=== PATIENT | male | born 1955 | race Caucasian/White ===

== ENCOUNTER 2021-09-08 17:03 | Inpatient (IN) ==
[2021-09-08] MEDS ORDERED: ONDANSETRON 4 MG/2 ML VIAL IV STA (18:26)
[2021-09-08] MEDS ORDERED: KETOROLAC 30 MG/1 ML VIAL IV STA (18:26)
[2021-09-08] MEDS ORDERED: SODIUM CHLORIDE 0.9% 500 ML IV STA (18:26)
[2021-09-08] MEDS ORDERED: HYDROmorphone 2 MG/1 ML VIAL IV STA (18:26)
[2021-09-08] MEDS ORDERED: LABETALOL 20 MG/4 ML SYRINGE IV STA (18:28)
[2021-09-08 18:35] LABS: Basophils # 0.1 10*3/uL (0.0-0.2); Basophils % 0.3 % (0.0-0.8); Eosinophils % 0.1 % (0.00-10.9); Hemoglobin 15.8 GM/DL (14.0-18.0); Immature Granulocytes % 0.7 %; Immature Granulocytes Absolute 0.15 #; Lymphocytes # 1.8 10*3/uL (1.4-4.0); Lymphocytes % 8.5 % (21.2-54.2); Mean Corpuscular HGB Conc 32.9 GM/DL (32-36); Mean Corpuscular Volume 96.2 FL (87-102); Mean Platelet Volume 10.7 FL (9.6-12.0); Monocytes % 9.6 % (1.7-12.7); Neutrophils % 80.8 % (38.7-73.9); Platelet Count 204 T/CUMM (130-400); Red Blood Count 4.99 MC/CUMM (3.8-5.5); Red Cell Distribution Width 13.8 % (9.3-17.3); White Blood Count 21.4 T/CUMM (4-12)
[2021-09-08 19:06] LABS: Alanine Aminotransferase 31 U/L (16-61); Albumin 3.7 G/DL (3.4-5.0); Alkaline Phosphatase 97 U/L (45-117); Amylase 58 U/L (25-115); Aspartate Amino Transferase 27 U/L (0-37); Blood Urea Nitrogen 28 MG/DL (7-18); Calcium 9.3 MG/DL (8.5-10.1); Carbon Dioxide 25 MMOL/L (21-32); Estimated Glom Filtration Rate 32 ML/MIN; Glucose 141 MG/DL (74-106); Osmolality,Calculated 286.4 MOS/KG (273-304); Potassium 4.4 MMOL/L (3.5-5.1); Sodium 140 MMOL/L (136-145); Total Protein 7.4 G/DL (6.4-8.2)
[2021-09-08 19:28] LABS: Eosinophils 1 % (0-10); Lymphocytes 11 % (20-55); Segmented Neutrophils 78 % (50-85); Total Cells Counted 100
[2021-09-08 19:29] LABS: Atypical Lymphocytes Few; Microcytosis Slight; Platelet Estimate Normal
[2021-09-08] MEDS ORDERED: cefTRIAXone 1,000 MG in SODIUM CHLORIDE 0.9% 100 ML IV STA (19:57)
[2021-09-08 20:13] LABS: Mucus,Urine Many /LPF (Occasional); RBC,Urine 958 /HPF (0-4)
[2021-09-08 20:26] LABS: Bilirubin,Urine Large mg/dL (Negative); Glucose,Urine (UA) 100 mg/dL (Negative); Ketones,Urine 15 mg/dL (Negative); Nitrite,Urine Positive (Negative); Protein,Urine >=300 MG/DL; Urine Appearance Turbid (Clear); Urine Color Brown (Yellow); Urine Specific Gravity 1.015 (1.001-1.035); Urine pH 5.5 (4.5-8.0)
[2021-09-08 20:27] LABS: Blood, Urine Large mg/dL (Negative)
[2021-09-08] MEDS ORDERED: GLUCAGON 1 MG VIAL IM PRN (22:02)
[2021-09-08] MEDS ORDERED: ONDANSETRON 4 MG/2 ML VIAL IV PRN (22:02)
[2021-09-08] MEDS ORDERED: ZALEPLON 5 MG CAPSULE PO PRN (22:02)
[2021-09-08] MEDS ORDERED: SIMETHICONE CHEW 125 MG TABLET PO PRN (22:02)
[2021-09-08] MEDS ORDERED: NICOTINE 21 MG/24 HR PATCH TRANSDERM PRN (22:02)
[2021-09-08] MEDS ORDERED: DEXTROSE 10% 250 ML BAG IV PRN (22:27)
[2021-09-08] MEDS: SODIUM CHLORIDE 0.45% 1,000 ML IV SCH (23:28)
[2021-09-08] MEDS: DOCUSATE SODIUM 100 MG CAPSULE PO SCH (23:28)
[2021-09-08] MEDS: POLYETHYLENE GLYCOL POWDER 17 GM PACK PO SCH (23:28)
[2021-09-09 07:15] LABS: Basophils % 0.3 % (0.0-0.8); Eosinophils # 0.4 10*3/uL (0.0-0.87); Eosinophils % 2.2 % (0.00-10.9); Hematocrit 41.7 VOL% (42.0-52.0); Hemoglobin 13.5 GM/DL (14.0-18.0); Immature Granulocytes % 0.6 %; Immature Granulocytes Absolute 0.09 #; Lymphocytes # 2.2 10*3/uL (1.4-4.0); Lymphocytes % 14.1 % (21.2-54.2); Mean Corpuscular HGB Conc 32.4 GM/DL (32-36); Mean Corpuscular Volume 98.1 FL (87-102); Mean Platelet Volume 10.6 FL (9.6-12.0); Neutrophils % 72.8 % (38.7-73.9); Platelet Count 167 T/CUMM (130-400); Red Blood Count 4.25 MC/CUMM (3.8-5.5); Red Cell Distribution Width 13.9 % (9.3-17.3); White Blood Count 15.9 T/CUMM (4-12)
[2021-09-09 07:22] LABS: PT Patient Result 11.4 SECS (10.5-12.0)
[2021-09-09 07:32] LABS: Carcinoembryonic Antigen 0.9 NG/ML (0.0-5.0)
[2021-09-09 07:36] LABS: Calcium 8.6 MG/DL (8.5-10.1); Osmolality,Calculated 282.8 MOS/KG (273-304); Potassium 4.4 MMOL/L (3.5-5.1); Risk Ratio 3.17; Thyroid Stimulating Hormone 0.784 uIU/ml (0.358-3.74); VLDL Cholesterol 19.8 MG/DL
[2021-09-09] MEDS ORDERED: NICOTINE 14 MG/24 HR PATCH TRANSDERM PRN (07:45)
[2021-09-09] MEDS: DOCUSATE SODIUM 100 MG CAPSULE PO SCH ×2 (09:05→21:21)
[2021-09-09] MEDS: PANTOPRAZOLE 40 MG TABLET PO SCH (09:05)
[2021-09-09] MEDS: POLYETHYLENE GLYCOL POWDER 17 GM PACK PO SCH ×2 (09:05→21:21)
[2021-09-09] MEDS: SODIUM CHLORIDE 0.45% 1,000 ML IV SCH ×2 (17:04→17:53)
[2021-09-09] MEDS: hydrALAZINE 20 MG/1 ML VIAL IV PRN (18:42)
[2021-09-09] MEDS: cefTRIAXone 1,000 MG in SODIUM CHLORIDE 0.9% 100 ML IV SCH (21:14)
[2021-09-10] MEDS: SODIUM CHLORIDE 0.45% 1,000 ML IV SCH ×3 (02:47→15:53)
[2021-09-10 07:08] LABS: Basophils # 0.1 10*3/uL (0.0-0.2); Basophils % 0.6 % (0.0-0.8); Eosinophils # 0.7 10*3/uL (0.0-0.87); Eosinophils % 5.2 % (0.00-10.9); Hematocrit 40.5 VOL% (42.0-52.0); Hemoglobin 13.2 GM/DL (14.0-18.0); Immature Granulocytes % 0.6 %; Immature Granulocytes Absolute 0.07 #; Lymphocytes # 2.3 10*3/uL (1.4-4.0); Lymphocytes % 17.9 % (21.2-54.2); Mean Corpuscular HGB Conc 32.6 GM/DL (32-36); Mean Corpuscular Volume 98.1 FL (87-102); Mean Platelet Volume 11.2 FL (9.6-12.0); Monocytes % 10.5 % (1.7-12.7); Neutrophils % 65.2 % (38.7-73.9); Platelet Count 178 T/CUMM (130-400); Red Blood Count 4.13 MC/CUMM (3.8-5.5); Red Cell Distribution Width 13.6 % (9.3-17.3); White Blood Count 12.6 T/CUMM (4-12)
[2021-09-10 07:44] LABS: Calcium 8.8 MG/DL (8.5-10.1); Osmolality,Calculated 283.7 MOS/KG (273-304); Potassium 4.1 MMOL/L (3.5-5.1)
[2021-09-10] MEDS: DOCUSATE SODIUM 100 MG CAPSULE PO SCH ×2 (09:19→20:35)
[2021-09-10] MEDS: PANTOPRAZOLE 40 MG TABLET PO SCH (09:19)
[2021-09-10] MEDS: POLYETHYLENE GLYCOL POWDER 17 GM PACK PO SCH ×2 (09:19→20:35)
[2021-09-10] MEDS: hydrALAZINE 20 MG/1 ML VIAL IV PRN (16:47)
[2021-09-10] MEDS: TAMSULOSIN 0.4 MG CAPSULE PO SCH (20:31)
[2021-09-10] MEDS: cefTRIAXone 1,000 MG in SODIUM CHLORIDE 0.9% 100 ML IV SCH (20:31)
[2021-09-11] MEDS: SODIUM CHLORIDE 0.45% 1,000 ML IV SCH ×4 (00:27→20:54)
[2021-09-11] MEDS: hydrALAZINE 20 MG/1 ML VIAL IV PRN ×2 (00:29→09:50)
[2021-09-11] MEDS: ACETAMINOPHEN 325 MG TABLET PO PRN ×3 (04:13→20:35)
[2021-09-11 07:19] LABS: Basophils # 0.1 10*3/uL (0.0-0.2); Basophils % 0.7 % (0.0-0.8); Eosinophils # 0.5 10*3/uL (0.0-0.87); Eosinophils % 5.3 % (0.00-10.9); Hematocrit 42.9 VOL% (42.0-52.0); Hemoglobin 14.2 GM/DL (14.0-18.0); Immature Granulocytes % 0.4 %; Immature Granulocytes Absolute 0.04 #; Lymphocytes # 2.1 10*3/uL (1.4-4.0); Lymphocytes % 21.2 % (21.2-54.2); Mean Corpuscular HGB Conc 33.1 GM/DL (32-36); Mean Platelet Volume 11.2 FL (9.6-12.0); Monocytes % 9.7 % (1.7-12.7); Neutrophils % 62.7 % (38.7-73.9); Platelet Count 191 T/CUMM (130-400); Red Blood Count 4.47 MC/CUMM (3.8-5.5); Red Cell Distribution Width 13.4 % (9.3-17.3)
[2021-09-11 07:25] LABS: Potassium 3.9 MMOL/L (3.5-5.1)
[2021-09-11] MEDS: POLYETHYLENE GLYCOL POWDER 17 GM PACK PO SCH ×2 (09:50→21:44)
[2021-09-11] MEDS: PANTOPRAZOLE 40 MG TABLET PO SCH (09:50)
[2021-09-11] MEDS: DOCUSATE SODIUM 100 MG CAPSULE PO SCH ×2 (09:52→21:44)
[2021-09-11] MEDS: amLODIPine 10 MG TABLET PO SCH (10:43)
[2021-09-11] MEDS: CHOLECALCIFEROL 1,000 UNIT TABLET PO SCH (12:00)
[2021-09-11 13:20] LABS: Hepatitis B Core IgM Quant 0.15 Index; Hepatitis B Surface Ag Quant < 0.10 Index; Hepatitis B Surface Ag Result Non-Reactive (NonReactive); Hepatitis C Virus Ab Result Non-Reactive (NonReactive)
[2021-09-11] MEDS: cefTRIAXone 1,000 MG in SODIUM CHLORIDE 0.9% 100 ML IV SCH (20:30)
[2021-09-11] MEDS: carvediloL 6.25 MG TABLET PO SCH (20:33)
[2021-09-11] MEDS: TAMSULOSIN 0.4 MG CAPSULE PO SCH (20:33)
[2021-09-12] MEDS: PANTOPRAZOLE 40 MG TABLET PO SCH (10:41)
[2021-09-12] MEDS: CHOLECALCIFEROL 1,000 UNIT TABLET PO SCH (10:41)
[2021-09-12] MEDS: carvediloL 6.25 MG TABLET PO SCH (10:42)
[2021-09-12] MEDS: DOCUSATE SODIUM 100 MG CAPSULE PO SCH (10:42)
[2021-09-12] MEDS: SODIUM CHLORIDE 0.45% 1,000 ML IV SCH ×2 (10:42→11:45)
[2021-09-12] MEDS: POLYETHYLENE GLYCOL POWDER 17 GM PACK PO SCH (10:42)
[2021-09-12] MEDS: amLODIPine 10 MG TABLET PO SCH (10:42)
[2021-09-12 14:07] VITALS: BP 145/99
== END 2021-09-12 14:01 | disposition home or self-care (01) | DRG 683 ==
LOC: N.ED 17:03 → N.EDINP 22:02 → SUATTDRO 22:02 → N.5E 09-09 02:21
PROVIDERS: ADMIT Internal Medicine; ATTEND Internal Medicine

== ENCOUNTER 2022-02-08 11:24 | Inpatient (IN) ==
[2022-02-08] MEDS ORDERED: ONDANSETRON 4 MG/2 ML VIAL IV PRN (13:46)
[2022-02-08] MEDS ORDERED: GLUCAGON 1 MG VIAL IM PRN (13:46)
[2022-02-08] MEDS ORDERED: DEXTROSE 10% 250 ML BAG IV PRN (13:55)
[2022-02-08] MEDS: SODIUM CHLORIDE 0.9% 1,000 ML IV SCH (14:17)
[2022-02-08] MEDS: ALBUTEROL/IPRATROPIUM 3 ML NEB RESP TX SCH (19:25)
[2022-02-08] MEDS: amLODIPine 10 MG TABLET PO SCH (20:13)
[2022-02-08] MEDS: carvediloL 6.25 MG TABLET PO SCH (20:14)
[2022-02-08] MEDS: ACETAMINOPHEN 325 MG TABLET PO PRN (20:14)
[2022-02-08 21:09] LABS: Calcium 8.5 MG/DL (8.5-10.1); Potassium 3.7 MMOL/L (3.5-5.1)
[2022-02-08] MEDS: PIPERACILLIN/TAZOBACTAM 3,375 MG in SODIUM CHLORIDE 0.9% 100 ML IV SCH (21:59)
[2022-02-08 23:01] LABS: Bacteria,Urine Moderate /HPF (Few); Hyaline Casts,Urine 3 /LPF (0-3); Mucus,Urine Occasional /LPF (Occasional); RBC,Urine 9 /HPF (0-4); Squamous Epithelial Cell,Urine Occasional /HPF (0-10)
[2022-02-08 23:03] LABS: Bilirubin,Urine Negative (Negative); Blood, Urine Moderate mg/dL (Negative); Glucose,Urine (UA) Negative (Negative); Ketones,Urine Negative (Negative); Nitrite,Urine Positive (Negative); Protein,Urine 100 mg/dL (Negative); Urine Appearance Clear (Clear); Urine Color Yellow (Yellow); Urine Urobilinogen 0.2 eU/dL (<2.0); Urine pH 5.5 (4.5-8.0)
[2022-02-09] MEDS ORDERED: methylPREDNISolone SOD SUC 125 MG/2 ML VIAL IV ONE (00:50)
[2022-02-09] MEDS: ALBUTEROL/IPRATROPIUM 3 ML NEB RESP TX SCH ×4 (01:04→19:05)
[2022-02-09] MEDS: SODIUM CHLORIDE 0.9% 1,000 ML IV SCH ×2 (02:21→05:43)
[2022-02-09] MEDS: PIPERACILLIN/TAZOBACTAM 3,375 MG in SODIUM CHLORIDE 0.9% 100 ML IV SCH ×3 (06:01→21:49)
[2022-02-09 06:44] LABS: Basophils % 0.3 % (0.0-0.8); Hematocrit 28.8 VOL% (42.0-52.0); Hemoglobin 9.4 GM/DL (14.0-18.0); Immature Granulocytes % 0.6 %; Immature Granulocytes Absolute 0.02 #; Lymphocytes # 0.3 10*3/uL (1.4-4.0); Lymphocytes % 7.9 % (21.2-54.2); Mean Corpuscular HGB Conc 32.6 GM/DL (32-36); Mean Platelet Volume 10.6 FL (9.6-12.0); Monocytes # 0.8 10*3/uL (0.11-0.8); Monocytes % 21.2 % (1.7-12.7); Platelet Count 227 T/CUMM (130-400); Red Blood Count 3.03 MC/CUMM (3.8-5.5); Red Cell Distribution Width 14.7 % (9.3-17.3); White Blood Count 3.5 T/CUMM (4-12)
[2022-02-09 06:44] LABS: ABG Base Excess 0.8 MMOL/L (-2.5-2.5); ABG HCO3 25.1 MMOL/L (20-26); ABG PCO2 37.6 MM HG (35-48); ABG PO2 65.8 MM HG (80-95); ABG TCO2 22.8 MMOL/L (23-27)
[2022-02-09 06:53] LABS: PT Patient Result 11.3 SECS (10.1-12.1)
[2022-02-09 07:05] LABS: Bilirubin,Direct 0.13 MG/DL (0.0-0.20); Bilirubin,Indirect 0.3 MG/DL (0.0-1.0); Bilirubin,Total 0.4 MG/DL (0.20-1.00); Calcium 8.3 MG/DL (8.5-10.1); Osmolality,Calculated 281.8 MOS/KG (273-304); Potassium 3.8 MMOL/L (3.5-5.1)
[2022-02-09 07:07] LABS: Band Neutrophils 2 % (0-10); Eosinophils 1 % (0-10); Lymphocytes 7 % (20-55); Total Cells Counted 100
[2022-02-09 07:08] LABS: Platelet Estimate Adequate
[2022-02-09] MEDS: methylPREDNISolone SOD SUC 125 MG/2 ML VIAL IV SCH ×2 (08:19→16:12)
[2022-02-09] MEDS: carvediloL 6.25 MG TABLET PO SCH ×2 (08:20→20:30)
[2022-02-09] MEDS: MULTIVITAMIN (CENTRUM) TABLET PO SCH (08:20)
[2022-02-09 12:35] LABS: % Iron Saturation 8.6 % (18-50); Ferritin 948.8 ng/mL (26-388)
[2022-02-09 12:38] LABS: Folate > 24.00 NG/ML (5.38-24.0); Vitamin B12 252 PG/ML (211-911)
[2022-02-09] MEDS: amLODIPine 10 MG TABLET PO SCH (20:30)
[2022-02-10] MEDS: methylPREDNISolone SOD SUC 125 MG/2 ML VIAL IV SCH ×2 (00:10→08:01)
[2022-02-10] MEDS: ALBUTEROL/IPRATROPIUM 3 ML NEB RESP TX SCH ×4 (01:37→20:08)
[2022-02-10 05:39] LABS: Basophils % 0.2 % (0.0-0.8); Hematocrit 28.7 VOL% (42.0-52.0); Hemoglobin 9.3 GM/DL (14.0-18.0); Immature Granulocytes % 1.7 %; Immature Granulocytes Absolute 0.07 #; Lymphocytes # 0.9 10*3/uL (1.4-4.0); Lymphocytes % 21.5 % (21.2-54.2); Mean Corpuscular HGB Conc 32.4 GM/DL (32-36); Mean Corpuscular Volume 95.7 FL (87-102); Mean Platelet Volume 10.7 FL (9.6-12.0); Monocytes % 23.5 % (1.7-12.7); Neutrophils % 53.1 % (38.7-73.9); Platelet Count 253 T/CUMM (130-400); Red Cell Distribution Width 14.5 % (9.3-17.3); White Blood Count 4.1 T/CUMM (4-12)
[2022-02-10] MEDS: SODIUM CHLORIDE 0.9% 1,000 ML IV SCH ×2 (05:50→11:51)
[2022-02-10] MEDS: PIPERACILLIN/TAZOBACTAM 3,375 MG in SODIUM CHLORIDE 0.9% 100 ML IV SCH ×3 (05:51→21:36)
[2022-02-10 06:01] LABS: Calcium 9.3 MG/DL (8.5-10.1); Osmolality,Calculated 299.1 MOS/KG (273-304); Potassium 4.3 MMOL/L (3.5-5.1)
[2022-02-10 06:12] LABS: Band Neutrophils 6 % (0-10); Lymphocytes 27 % (20-55); Total Cells Counted 100
[2022-02-10 06:13] LABS: Atypical Lymphocytes Few
[2022-02-10 06:14] LABS: Macrocytosis Slight; Polychromasia Slight
[2022-02-10] MEDS ORDERED: DIAZEPAM 5 MG TABLET PO ONE (07:36)
[2022-02-10] MEDS: MULTIVITAMIN (CENTRUM) TABLET PO SCH (08:02)
[2022-02-10] MEDS: carvediloL 6.25 MG TABLET PO SCH ×2 (08:02→20:41)
[2022-02-10] MEDS ORDERED: VANCOMYCIN INJ 1,000 MG in SODIUM CHLORIDE 0.9% 250 ML IV ONE (09:55)
[2022-02-10] MEDS: VANCOMYCIN INJ 1,250 MG in SODIUM CHLORIDE 0.9% 250 ML IV SCH (11:49)
[2022-02-10] MEDS: FERRIC GLUCONATE COMPLEX 125 MG in SODIUM CHLORIDE 0.9% 100 ML IV SCH (13:43)
[2022-02-11] MEDS: ALBUTEROL/IPRATROPIUM 3 ML NEB RESP TX SCH ×4 (00:33→19:12)
[2022-02-11] MEDS: VANCOMYCIN INJ 1,250 MG in SODIUM CHLORIDE 0.9% 250 ML IV SCH ×2 (02:05→14:18)
[2022-02-11] MEDS: SODIUM CHLORIDE 0.9% 1,000 ML IV SCH (04:01)
[2022-02-11] MEDS: PIPERACILLIN/TAZOBACTAM 3,375 MG in SODIUM CHLORIDE 0.9% 100 ML IV SCH ×3 (05:15→21:14)
[2022-02-11 05:47] LABS: Basophils % 0.5 % (0.0-0.8); Hematocrit 28.2 VOL% (42.0-52.0); Hemoglobin 9.3 GM/DL (14.0-18.0); Immature Granulocytes % 10.8 %; Immature Granulocytes Absolute 0.67 #; Lymphocytes # 1.4 10*3/uL (1.4-4.0); Lymphocytes % 22.4 % (21.2-54.2); Mean Corpuscular Volume 94.6 FL (87-102); Mean Platelet Volume 10.4 FL (9.6-12.0); Monocytes # 1.6 10*3/uL (0.11-0.8); Monocytes % 26.3 % (1.7-12.7); Platelet Count 316 T/CUMM (130-400); Red Blood Count 2.98 MC/CUMM (3.8-5.5); Red Cell Distribution Width 14.6 % (9.3-17.3); White Blood Count 6.2 T/CUMM (4-12)
[2022-02-11 06:06] LABS: Calcium 8.3 MG/DL (8.5-10.1); Osmolality,Calculated 298.1 MOS/KG (273-304); Potassium 3.9 MMOL/L (3.5-5.1)
[2022-02-11 06:36] LABS: Anisocytosis 1+; Band Neutrophils 9 % (0-10); Lymphocytes 25 % (20-55); Myelocytes 3 %; Nucleated Red Blood Cells 1 (0-5); Platelet Estimate Normal; Total Cells Counted 100
[2022-02-11] MEDS: MULTIVITAMIN (CENTRUM) TABLET PO SCH (08:28)
[2022-02-11] MEDS: carvediloL 6.25 MG TABLET PO SCH ×2 (08:28→21:14)
[2022-02-11] MEDS: FERRIC GLUCONATE COMPLEX 125 MG in SODIUM CHLORIDE 0.9% 100 ML IV SCH (09:23)
[2022-02-11] MEDS: ACETAMINOPHEN 325 MG TABLET PO PRN (11:35)
[2022-02-11] MEDS: amLODIPine 10 MG TABLET PO SCH (21:14)
[2022-02-12] MEDS: ALBUTEROL/IPRATROPIUM 3 ML NEB RESP TX SCH ×4 (00:32→20:29)
[2022-02-12 02:25] LABS: Basophils % 0.1 % (0.0-0.8); Eosinophils % 0.3 % (0.00-10.9); Hematocrit 31.9 VOL% (42.0-52.0); Hemoglobin 10.4 GM/DL (14.0-18.0); Immature Granulocytes % 20.6 %; Immature Granulocytes Absolute 2.16 #; Mean Corpuscular HGB Conc 32.6 GM/DL (32-36); Mean Corpuscular Volume 95.2 FL (87-102); Mean Platelet Volume 9.9 FL (9.6-12.0); Monocytes # 2.1 10*3/uL (0.11-0.8); Monocytes % 19.8 % (1.7-12.7); NRBC # 0.14 10*3/uL; Neutrophils % 40.2 % (38.7-73.9); Platelet Count 359 T/CUMM (130-400); Red Blood Count 3.35 MC/CUMM (3.8-5.5); White Blood Count 10.5 T/CUMM (4-12)
[2022-02-12 02:44] LABS: Calcium 9.5 MG/DL (8.5-10.1); Osmolality,Calculated 291.3 MOS/KG (273-304); Potassium 3.8 MMOL/L (3.5-5.1)
[2022-02-12 02:52] LABS: Lymphocytes 48 % (20-55); Myelocytes 2 %; Platelet Estimate Normal; Total Cells Counted 100
[2022-02-12] MEDS: PIPERACILLIN/TAZOBACTAM 3,375 MG in SODIUM CHLORIDE 0.9% 100 ML IV SCH (06:15)
[2022-02-12] MEDS: VANCOMYCIN INJ 1,250 MG in SODIUM CHLORIDE 0.9% 250 ML IV SCH (06:34)
[2022-02-12] MEDS: MULTIVITAMIN (CENTRUM) TABLET PO SCH (08:21)
[2022-02-12] MEDS: carvediloL 6.25 MG TABLET PO SCH ×2 (08:21→20:56)
[2022-02-12] MEDS: FERRIC GLUCONATE COMPLEX 125 MG in SODIUM CHLORIDE 0.9% 100 ML IV SCH (10:16)
[2022-02-12] MEDS: AMPICILLIN INJ 1,000 MG in SODIUM CHLORIDE 0.9% 100 ML IV SCH ×3 (11:33→21:29)
[2022-02-12] MEDS ORDERED: VANCOMYCIN INJ 1,500 MG in SODIUM CHLORIDE 0.9% 500 ML IV SCH (15:00)
[2022-02-12] MEDS: amLODIPine 10 MG TABLET PO SCH (20:56)
[2022-02-13] MEDS: ALBUTEROL/IPRATROPIUM 3 ML NEB RESP TX SCH ×4 (01:03→19:30)
[2022-02-13] MEDS: AMPICILLIN INJ 1,000 MG in SODIUM CHLORIDE 0.9% 100 ML IV SCH ×4 (04:00→21:09)
[2022-02-13 05:37] LABS: Basophils % 0.1 % (0.0-0.8); Eosinophils # 0.1 10*3/uL (0.0-0.87); Eosinophils % 0.9 % (0.00-10.9); Hemoglobin 10.1 GM/DL (14.0-18.0); Immature Granulocytes % 16.2 %; Immature Granulocytes Absolute 2.39 #; Lymphocytes # 2.3 10*3/uL (1.4-4.0); Lymphocytes % 15.5 % (21.2-54.2); Mean Corpuscular HGB Conc 32.6 GM/DL (32-36); Mean Platelet Volume 9.9 FL (9.6-12.0); Monocytes # 2.2 10*3/uL (0.11-0.8); Monocytes % 14.9 % (1.7-12.7); NRBC # 0.09 10*3/uL; Neutrophils % 52.4 % (38.7-73.9); Platelet Count 363 T/CUMM (130-400); Red Blood Count 3.23 MC/CUMM (3.8-5.5); Red Cell Distribution Width 15.2 % (9.3-17.3); White Blood Count 14.8 T/CUMM (4-12)
[2022-02-13 05:57] LABS: Calcium 9.2 MG/DL (8.5-10.1); Osmolality,Calculated 295.3 MOS/KG (273-304); Potassium 3.5 MMOL/L (3.5-5.1)
[2022-02-13 05:58] LABS: Band Neutrophils 4 % (0-10); Lymphocytes 12 % (20-55); Metamyelocytes 1 %; Myelocytes 4 %; Promyelocytes 2 %; Total Cells Counted 100
[2022-02-13 05:59] LABS: Hypochromia 1+
[2022-02-13 06:00] LABS: Macrocytosis Slight
[2022-02-13] MEDS: MULTIVITAMIN (CENTRUM) TABLET PO SCH (08:56)
[2022-02-13] MEDS: FERRIC GLUCONATE COMPLEX 125 MG in SODIUM CHLORIDE 0.9% 100 ML IV SCH (08:56)
[2022-02-13] MEDS: carvediloL 6.25 MG TABLET PO SCH ×2 (08:56→21:09)
[2022-02-13] MEDS: SODIUM CHLORIDE 0.45% 1,000 ML IV SCH (17:08)
[2022-02-13] MEDS ORDERED: LOPERAMIDE 2 MG CAPSULE PO ONE (18:22)
[2022-02-13] MEDS ORDERED: LOPERAMIDE 2 MG CAPSULE PO PRN (18:23)
[2022-02-13] MEDS: amLODIPine 10 MG TABLET PO SCH (21:08)
[2022-02-14] MEDS: ALBUTEROL/IPRATROPIUM 3 ML NEB RESP TX SCH ×2 (01:34→07:15)
[2022-02-14] MEDS: AMPICILLIN INJ 1,000 MG in SODIUM CHLORIDE 0.9% 100 ML IV SCH ×2 (04:15→09:22)
[2022-02-14] MEDS: SODIUM CHLORIDE 0.45% 1,000 ML IV SCH (06:29)
[2022-02-14 08:02] VITALS: BP 114/69
[2022-02-14] MEDS: carvediloL 6.25 MG TABLET PO SCH (08:12)
[2022-02-14] MEDS: MULTIVITAMIN (CENTRUM) TABLET PO SCH (08:12)
[2022-02-14] MEDS: FERRIC GLUCONATE COMPLEX 125 MG in SODIUM CHLORIDE 0.9% 100 ML IV SCH (09:22)
[2022-02-14] MEDS ORDERED: AMOXICILLIN 500 MG CAPSULE PO SCH (14:00)
== END 2022-02-14 09:59 | disposition home or self-care (01) | DRG 180 ==
LOC: N.TELES → SUATTDRO 11:49
PROVIDERS: ADMIT Internal Medicine; ATTEND Internal Medicine Geriatric Medicine
PROC: [UNRECOGNIZED PROCEDURE] (2022-02-10 08:35)

== ENCOUNTER 2022-03-13 12:32 | Inpatient (IN) ==
[2022-03-13] MEDS ORDERED: SODIUM CHLORIDE 0.9% 1,000 ML IV STA (14:03)
[2022-03-13 14:20] LABS: Basophils % 0.1 % (0.0-0.8); Lymphocytes # 1.8 10*3/uL (1.4-4.0); Lymphocytes % 13.6 % (21.2-54.2); Mean Corpuscular Volume 102.9 FL (87-102); Mean Platelet Volume 9.6 FL (9.6-12.0); Monocytes # 1.3 10*3/uL (0.11-0.8); Monocytes % 9.6 % (1.7-12.7); NRBC # 0.21 10*3/uL; Neutrophils % 73.7 % (38.7-73.9); Platelet Count 188 T/CUMM (130-400); Red Blood Count 1.75 MC/CUMM (3.8-5.5); Red Cell Distribution Width 17.7 % (9.3-17.3); White Blood Count 13.5 T/CUMM (4-12)
[2022-03-13 14:23] LABS: Hemoglobin 5.4 GM/DL (14.0-18.0)
[2022-03-13] MEDS ORDERED: PIPERACILLIN/TAZOBACTAM 3,375 MG in SODIUM CHLORIDE 0.9% 100 ML IV STA (14:33)
[2022-03-13] MEDS ORDERED: SODIUM CHLORIDE 0.9% 1,000 ML IV PRN (14:34)
[2022-03-13 14:41] LABS: Band Neutrophils 2 % (0-10); Lymphocytes 14 % (20-55); Total Cells Counted 100
[2022-03-13 14:43] LABS: Elliptocytes Few; Platelet Estimate Normal; Polychromasia 2+
[2022-03-13 14:51] LABS: Albumin 1.8 G/DL (3.4-5.0); Bilirubin,Total 0.6 MG/DL (0.20-1.00); Calcium 8.4 MG/DL (8.5-10.1); Osmolality,Calculated 286.1 MOS/KG (273-304); Potassium 4.5 MMOL/L (3.5-5.1); Total Protein 5.9 G/DL (6.4-8.2)
[2022-03-13] MEDS ORDERED: SODIUM CHLORIDE 0.9% 2,100 ML IV ONE (15:19)
[2022-03-13] MEDS ORDERED: ALBUTEROL 2.5 MG/3 ML NEB RESP TX PRN (15:26)
[2022-03-13] MEDS ORDERED: ONDANSETRON 4 MG/2 ML VIAL IV PRN (15:27)
[2022-03-13] MEDS ORDERED: MEROPENEM 500 MG in SODIUM CHLORIDE 0.9% 100 ML IV SCH (16:00)
[2022-03-13 16:20] LABS: PT Patient Result 11.4 SECS (10.1-12.1); Partial Thromboplastin Time 25.4 SECS (23.7-32.9)
[2022-03-13] MEDS: PANTOPRAZOLE 40 MG VIAL IV SCH (16:36)
[2022-03-13] MEDS: LEVOFLOXACIN INJ 750 MG/150 ML PREMIX IV SCH (21:00)
[2022-03-13 22:05] LABS: Hematocrit 22.3 VOL% (42.0-52.0); Hemoglobin 6.9 GM/DL (14.0-18.0)
[2022-03-14 02:08] LABS: Basophils % 0.1 % (0.0-0.8); Hematocrit 23.9 VOL% (42.0-52.0); Hemoglobin 7.5 GM/DL (14.0-18.0); Immature Granulocytes % 2.8 %; Lymphocytes # 1.5 10*3/uL (1.4-4.0); Lymphocytes % 14.2 % (21.2-54.2); Mean Corpuscular HGB Conc 31.4 GM/DL (32-36); Mean Corpuscular Volume 94.5 FL (87-102); Mean Platelet Volume 9.6 FL (9.6-12.0); Monocytes # 1.3 10*3/uL (0.11-0.8); Monocytes % 11.6 % (1.7-12.7); NRBC # 0.17 10*3/uL; Neutrophils % 71.3 % (38.7-73.9); Platelet Count 135 T/CUMM (130-400); Red Blood Count 2.53 MC/CUMM (3.8-5.5); Red Cell Distribution Width 17.4 % (9.3-17.3); White Blood Count 10.9 T/CUMM (4-12)
[2022-03-14 02:28] LABS: Calcium 8.2 MG/DL (8.5-10.1); Potassium 4.1 MMOL/L (3.5-5.1)
[2022-03-14 02:40] LABS: Lymphocytes 17 % (20-55); Platelet Estimate Adequate; Total Cells Counted 100
[2022-03-14] MEDS: DEXAMETHASONE 0.5 MG TABLET PO SCH (10:16)
[2022-03-14] MEDS: MULTIVITAMIN (CENTRUM) TABLET PO SCH (10:16)
[2022-03-14] MEDS ORDERED: SODIUM CHLORIDE 0.9% 1,000 ML IV PRN (10:44)
[2022-03-14] MEDS ORDERED: FUROSEMIDE 40 MG/4 ML VIAL IV ONE (10:44)
[2022-03-14] MEDS: PANTOPRAZOLE 40 MG VIAL IV SCH (18:19)
[2022-03-14 19:32] LABS: Basophils % 0.2 % (0.0-0.8); Hemoglobin 9.4 GM/DL (14.0-18.0); Immature Granulocytes % 3.7 %; Immature Granulocytes Absolute 0.43 #; Lymphocytes # 1.9 10*3/uL (1.4-4.0); Lymphocytes % 16.2 % (21.2-54.2); Mean Corpuscular HGB Conc 31.3 GM/DL (32-36); Mean Corpuscular Volume 94.3 FL (87-102); Mean Platelet Volume 9.6 FL (9.6-12.0); Monocytes # 1.3 10*3/uL (0.11-0.8); Monocytes % 10.9 % (1.7-12.7); NRBC # 0.19 10*3/uL; Platelet Count 138 T/CUMM (130-400); Red Blood Count 3.18 MC/CUMM (3.8-5.5); Red Cell Distribution Width 17.7 % (9.3-17.3); White Blood Count 11.5 T/CUMM (4-12)
[2022-03-14 20:07] LABS: Band Neutrophils 3 % (0-10); Hypochromia Slight; Lymphocytes 20 % (20-55); Metamyelocytes 2 %; Nucleated Red Blood Cells 2 /100 WBC (0-5); Polychromasia Few; Total Cells Counted 100
[2022-03-14 20:08] LABS: Platelet Estimate Decreased
[2022-03-14] MEDS: guaiFENesin 200 MG/10 ML UDCUP PO PRN (21:00)
[2022-03-15 05:57] LABS: Basophils % 0.2 % (0.0-0.8); Eosinophils % 0.1 % (0.00-10.9); Hematocrit 29.3 VOL% (42.0-52.0); Hemoglobin 9.2 GM/DL (14.0-18.0); Immature Granulocytes % 4.4 %; Lymphocytes % 17.9 % (21.2-54.2); Mean Corpuscular HGB Conc 31.4 GM/DL (32-36); Mean Corpuscular Volume 95.1 FL (87-102); Mean Platelet Volume 9.6 FL (9.6-12.0); Monocytes # 1.4 10*3/uL (0.11-0.8); Monocytes % 12.5 % (1.7-12.7); Neutrophils % 64.9 % (38.7-73.9); Platelet Count 138 T/CUMM (130-400); Red Blood Count 3.08 MC/CUMM (3.8-5.5); White Blood Count 11.3 T/CUMM (4-12)
[2022-03-15 06:26] LABS: Lymphocytes 17 % (20-55); Nucleated Red Blood Cells 1 /100 WBC (0-5); Total Cells Counted 100
[2022-03-15 06:27] LABS: Platelet Estimate Normal
[2022-03-15 06:33] LABS: Albumin 1.8 G/DL (3.4-5.0); Bilirubin,Total 0.4 MG/DL (0.20-1.00); Calcium 8.5 MG/DL (8.5-10.1); Osmolality,Calculated 283.8 MOS/KG (273-304); Phosphorous 2.8 MG/DL (2.5-4.9); Potassium 4.3 MMOL/L (3.5-5.1); Total Protein 5.6 G/DL (6.4-8.2)
[2022-03-15] MEDS: DEXAMETHASONE 0.5 MG TABLET PO SCH (09:08)
[2022-03-15] MEDS: MULTIVITAMIN (CENTRUM) TABLET PO SCH (09:09)
[2022-03-15] MEDS: oxyCODONE/ACETAMINOPHEN 5-325 MG TABLET PO PRN ×2 (16:24→22:21)
[2022-03-15] MEDS: guaiFENesin 200 MG/10 ML UDCUP PO PRN (16:24)
[2022-03-15] MEDS: LEVOFLOXACIN INJ 750 MG/150 ML PREMIX IV SCH (22:20)
[2022-03-15] MEDS: BENZONATATE 100 MG CAPSULE PO PRN (22:21)
[2022-03-16] MEDS: BENZONATATE 100 MG CAPSULE PO PRN (05:32)
[2022-03-16 05:52] LABS: Basophils # 0.1 10*3/uL (0.0-0.2); Basophils % 0.4 % (0.0-0.8); Eosinophils # 0.1 10*3/uL (0.0-0.87); Eosinophils % 0.3 % (0.00-10.9); Hematocrit 29.4 VOL% (42.0-52.0); Hemoglobin 8.8 GM/DL (14.0-18.0); Immature Granulocytes % 5.4 %; Immature Granulocytes Absolute 0.78 #; Lymphocytes # 2.1 10*3/uL (1.4-4.0); Lymphocytes % 14.5 % (21.2-54.2); Mean Corpuscular HGB Conc 29.9 GM/DL (32-36); Mean Corpuscular Volume 97.4 FL (87-102); Mean Platelet Volume 10.2 FL (9.6-12.0); Monocytes # 1.6 10*3/uL (0.11-0.8); Monocytes % 10.9 % (1.7-12.7); Neutrophils % 68.5 % (38.7-73.9); Platelet Count 148 T/CUMM (130-400); Red Blood Count 3.02 MC/CUMM (3.8-5.5); Red Cell Distribution Width 18.4 % (9.3-17.3); White Blood Count 14.5 T/CUMM (4-12)
[2022-03-16 06:16] LABS: Calcium 8.5 MG/DL (8.5-10.1); Osmolality,Calculated 283.7 MOS/KG (273-304); Potassium 4.4 MMOL/L (3.5-5.1)
[2022-03-16 06:20] LABS: Hypochromia Slight; Lymphocytes 15 % (20-55); Microcytosis Slight; Nucleated Red Blood Cells 1 /100 WBC (0-5); Platelet Estimate Adequate; Total Cells Counted 100
[2022-03-16] MEDS ORDERED: PANTOPRAZOLE 40 MG TABLET PO SCH (09:00)
[2022-03-16] MEDS: DEXAMETHASONE 0.5 MG TABLET PO SCH (09:15)
[2022-03-16] MEDS: MULTIVITAMIN (CENTRUM) TABLET PO SCH (09:15)
[2022-03-16 21:30] VITALS: BP 113/76
== END 2022-03-16 13:05 | disposition home or self-care (01) | DRG 811 ==
LOC: N.ED 12:32 → N.EDINP 15:26 → SUATTDRO 15:26 → N.CC 16:50 → N.TELES 03-15 02:00
PROVIDERS: ADMIT Internal Medicine; ATTEND Internal Medicine

== ENCOUNTER 2022-03-24 09:01 | Inpatient (IN) ==
[2022-03-24] MEDS ORDERED: SODIUM CHLORIDE 0.9% 1,000 ML IV STA (09:27)
[2022-03-24 09:39] LABS: Arterial Base Excess iSTAT -7 MMOL/L (-2.5-2.5); Arterial Bicarbonate iSTAT 17.3 MMOL/L (20-26); Arterial O2 Saturation iSTAT 84 % (95-100); Arterial PCO2 iSTAT 30 MM HG (35-48); Arterial PO2 iSTAT 49 MM HG (80-95); Arterial Total CO2 iSTAT 18 MMO/L (23-27); Arterial pH iSTAT 7.376 (7.35-7.45)
[2022-03-24] MEDS ORDERED: MEROPENEM 1,000 MG in SODIUM CHLORIDE 0.9% 100 ML IV ONE (09:49)
[2022-03-24] MEDS ORDERED: VANCOMYCIN INJ 1,500 MG in SODIUM CHLORIDE 0.9% 500 ML IV STA (09:50)
[2022-03-24] MEDS ORDERED: ALBUTEROL 2.5 MG/3 ML NEB RESP TX STA (09:53)
[2022-03-24 09:56] LABS: Basophils # 0.1 10*3/uL (0.0-0.2); Basophils % 0.2 % (0.0-0.8); Hematocrit 23.5 VOL% (42.0-52.0); Hemoglobin 6.5 GM/DL (14.0-18.0); Immature Granulocytes % 7.1 %; Immature Granulocytes Absolute 2.28 #; Lymphocytes # 2.6 10*3/uL (1.4-4.0); Lymphocytes % 8.1 % (21.2-54.2); Mean Corpuscular HGB Conc 27.7 GM/DL (32-36); Mean Corpuscular Volume 104.4 FL (87-102); Mean Platelet Volume 10.1 FL (9.6-12.0); Monocytes # 2.1 10*3/uL (0.11-0.8); Monocytes % 6.4 % (1.7-12.7); NRBC # 0.23 10*3/uL; Neutrophils % 78.2 % (38.7-73.9); Platelet Count 426 T/CUMM (130-400); Red Blood Count 2.25 MC/CUMM (3.8-5.5); Red Cell Distribution Width 19.4 % (9.3-17.3); White Blood Count 32.1 T/CUMM (4-12)
[2022-03-24 10:15] LABS: Band Neutrophils 3 % (0-10); Hypochromia Slight; Lymphocytes 13 % (20-55); Macrocytosis Slight; Nucleated Red Blood Cells 1 /100 WBC (0-5); Platelet Estimate Adequate; Polychromasia Slight; Total Cells Counted 100
[2022-03-24] MEDS ORDERED: SODIUM CHLORIDE 0.9% 2,550 ML IV ONE (10:16)
[2022-03-24 10:24] LABS: Bilirubin,Total 0.7 MG/DL (0.20-1.00); Calcium 8.5 MG/DL (8.5-10.1); Osmolality,Calculated 291.7 MOS/KG (273-304); Potassium 4.7 MMOL/L (3.5-5.1); Total Protein 5.1 G/DL (6.4-8.2)
[2022-03-24] MEDS ORDERED: ALBUTEROL 2.5 MG/3 ML NEB RESP TX PRN (11:29)
[2022-03-24] MEDS ORDERED: MORPHINE 2 MG/1 ML SYRINGE IV PRN (11:32)
[2022-03-24] MEDS ORDERED: ACETAMINOPHEN 325 MG TABLET PO PRN (11:32)
[2022-03-24] MEDS ORDERED: DOCUSATE SODIUM 100 MG CAPSULE PO PRN (11:32)
[2022-03-24] MEDS ORDERED: ONDANSETRON 4 MG/2 ML VIAL IV PRN (11:32)
[2022-03-24] MEDS ORDERED: SODIUM CHLORIDE 0.9% 1,000 ML IV PRN (11:38)
[2022-03-24] MEDS ORDERED: ENOXAPARIN 40 MG/0.4 ML SYRINGE SUBCUT SCH (12:00)
[2022-03-24] MEDS ORDERED: GLUCAGON 1 MG VIAL IM PRN (12:37)
[2022-03-24] MEDS ORDERED: DEXTROSE 10% 250 ML BAG IV PRN (12:37)
[2022-03-24] MEDS ORDERED: ALBUTEROL/IPRATROPIUM 3 ML NEB RESP TX SCH (13:00)
[2022-03-24] MEDS ORDERED: ATROPINE 1 MG/10 ML SYRINGE ONE (13:12)
[2022-03-24 14:21] VITALS: BP 91/77
[2022-03-24] MEDS ORDERED: MEROPENEM 500 MG in SODIUM CHLORIDE 0.9% 100 ML IV SCH (18:00)
[2022-03-25] MEDS ORDERED: PANTOPRAZOLE 40 MG TABLET PO SCH (09:00)
== END 2022-03-24 13:15 | disposition expired | DRG 871 ==
LOC: N.ED 09:01 → N.EDINP 11:29
PROVIDERS: ADMIT Family Medicine; ATTEND Family Medicine